=== PATIENT | female | born 1990 | race Caucasian/White ===

== ENCOUNTER 2017-02-04 22:15 | Emergency (ER) | payer OTHER ==
[~2017-02-04] VITALS: Ht 162.6 cm; Wt 79.5 kg
[~2017-02-04 22:15] MED LIST: PRENAT PO
[2017-02-04 22:18] VITALS: Ht 162.6 cm; Wt 79.5 kg
[2017-02-04] MEDS ORDERED: ONDANSETRON 4 MG INJ IV STA (22:27)
[2017-02-04] MEDS ORDERED: ONDANSETRON 4 MG INJ ONE (22:29)
[2017-02-04] MEDS ORDERED: SOD CHLORIDE 0.9% 1,000 ML IV ONE (22:30)
[2017-02-04] MEDS ORDERED: ACETAMINOPHEN 325 MG TAB PO ONE (23:00)
[2017-02-04] MEDS ORDERED: LIDOCAINE/MYLANTA 40 ML BTL PO ONE (23:00)
--- NOTE | 2017-02-05 00:29 | ERD ---
ER Documentation Chief Complaint Date/Time DATE: 02/05/17 TIME: 00:28 Chief Complaint MID ADBOMINAL PAIN RADIAITING TO THE BACK, NAUSEA/VOMITING. HPI 27-year-old female comes in with midepigastric abdominal pain and anxiety and tremulousness. She unfortunately just lost her 8-month-old child in a pediatric cardiac arrest. Denies suicidal homicidal ideation. Denies any other current issues. ROS All systems reviewed and are negative except as per history of present illness. Medications Home Meds Discontinued Reported Medications Multivit/Min/Fol Ac/Iron/Pren* ( S*) 1 Tab Tab, 1 TAB PO DAILY, TAB 03/15/16 Allergies Allergies: Coded Allergies: No Known Allergy (Unverified , 02/04/17) PMhx/Soc History of Surgery: No Anesthesia Reaction: No Hx Neurological Disorder: No Hx Respiratory Disorders: No Hx Cardiac Disorders: No Hx Psychiatric Problems: No Hx Miscellaneous Medical Probl: No Hx Alcohol Use: No Hx Substance Use: No Hx Tobacco Use: No Smoking Status: Never smoker Physical Exam Vitals Vital Signs Date Time Temp Pulse Resp B/P Pulse Ox O2 Delivery O2 Flow Rate FiO2 02/04/17 22:20 88 18 134/114 100 Room Air 02/04/17 22:18 98.1 87 18 165/87 100 Physical Exam Const: [] Head: Atraumatic Eyes: Normal Conjunctiva ENT: Normal External Ears, Nose and Mouth. Neck: Full range of motion..~ No meningismus. Resp: Clear to auscultation bilaterally Cardio: Regular rate and rhythm, no murmurs Abd: Soft, non tender, non distended. Normal bowel sounds Skin: No petechiae or rashes Back: No midline or flank tenderness Ext: No cyanosis, or edema Neur: Awake and alert Psych: Normal Mood and Affect Results 24 hrs Current Medications Medications (Trade) Dose Ordered Sig/Liane Route PRN Reason Start Time Stop Time Status Last Admin Dose Admin Sodium Chloride (NS) 1,000 ml @ 1,000 mls/hr Q1H ONCE IV 02/04/17 22:30 02/04/17 23:30 DC 02/04/17 23:01 Ondansetron HCl (Zofran Inj) 4 mg ONCE STAT IV 02/04/17 22:27 02/04/17 22:28 DC 02/04/17 23:01 Miscellaneous Medication (Gi Cocktail (2)) 40 ml ONCE ONCE PO 02/04/17 23:00 02/04/17 23:12 DC 02/04/17 23:00 Acetaminophen (Tylenol Tab) 650 mg ONCE ONCE PO 02/04/17 23:00 02/04/17 23:12 DC 02/04/17 23:01 Acetaminophen/ Hydrocodone Bitart ([place] (5/325)) 1 tab ONCE ONCE PO 02/05/17 00:30 02/05/17 00:31 02/05/17 00:14 Procedures/MDM Medical decision-making: Patient has epigastric abdominal pain and tremulousness consistent with gastritis likely secondary to anxiety. At this point she is stable for outpatient management. She has been advised to follow- up in 8 hours for serial abdominal exams. This is likely grief reaction. Patient offered counseling services here in the department. [employer] at bedside Departure Diagnosis: Primary Impression: Grief reaction Additional Impression: Abdominal pain Abdominal location: epigastric Qualified Code: R10.13 - Epigastric pain Condition: Stable Patient Instructions: Grief Reaction [facility] Feb 05, 2017 00:29
[2017-02-05] MEDS ORDERED: HYDROCODONE/APAP (5/325) TAB PO ONE (00:30)
[2017-02-05 02:46] VITALS: BP 155/82; PULSE 74; RESP 14
== END 2017-02-05 02:47 | disposition home or self-care (01) ==
LOC: E/R 22:15
DX: F43.20 Adjustment disorder, unspecified (principal); R11.2 Nausea with vomiting, unspecified
CPT/HCPCS: 93005; 96374; J2405; J7030; Z7502; Z7610

== ENCOUNTER 2017-02-15 04:03 | Emergency (ER) | payer OTHER ==
[~2017-02-15] VITALS: Ht 165.1 cm; Wt 88.0 kg
[2017-02-15 04:11] VITALS: Ht 165.1 cm; Wt 88.0 kg
--- NOTE | 2017-02-15 04:21 | ERA ---
ER Documentation Chief Complaint Date/Time DATE: 02/15/17 TIME: 04:20 Chief Complaint Epigastric abdominal pain HPI The patient is a 27-year-old female, presenting to the ER because of epigastric abdominal pain that began last night. She vomited once last night. She was in the ER a week ago for similar symptoms, denies fever, chills, neck pain, chest pain, dyspnea, lower abdominal pain, dysuria, diarrhea, constipation. He does not smoke nor drink. She recently lost her daughter a week ago from cardiac arrest Past medical history: None Past medical history: 3 ROS All systems reviewed and are negative except as per history of present illness. Medications Home Meds Active Scripts Ibuprofen* (Motrin*) 600 Mg Tab, 600 MG PO Q6H Y for PAIN AND OR ELEVATED TEMP, #20 TAB Prov:YAEL FULLER MD 02/15/17 Pantoprazole* (Protonix*) 40 Mg Tablet.dr, 40 MG PO DAILY, #20 TAB Prov:YAEL FULLER MD 02/15/17 Reported Medications Acetaminophen* (Acetaminophen*) 500 MG Extra Strength Tablet, 500 MG PO Q4H Y for PAIN AND OR ELEVATED TEMP, TAB 02/15/17 Allergies Allergies: Coded Allergies: No Known Allergy (Unverified , 02/04/17) PMhx/Soc History of Surgery: No Anesthesia Reaction: No Hx Neurological Disorder: No Hx Respiratory Disorders: No Hx Cardiac Disorders: No Hx Psychiatric Problems: No Hx Miscellaneous Medical Probl: No Hx Alcohol Use: No Hx Substance Use: No Hx Tobacco Use: No Physical Exam Vitals Vital Signs Date Time Temp Pulse Resp B/P Pulse Ox O2 Delivery O2 Flow Rate FiO2 02/15/17 04:44 75 18 152/97 98 02/15/17 04:11 98.7 70 18 198/99 98 Physical Exam Const: No acute distress. Head: Atraumatic. Eyes: Normal Conjunctiva. ENT: Normal External Ears, Nose and Mouth. Neck: Full range of motion. No meningismus. Resp: Clear to auscultation bilaterally. Cardio: Regular rate and rhythm. Abd: Soft, non distended, normal bowel sounds, mild epigastric abdominal tenderness, Skin: No petechiae or rashes. Back: No midline or flank tenderness. Ext: No cyanosis, or edema. Neur: Awake and alert. No focal deficit Psych: Normal Mood and Affect. Result Diagram: 02/15/17 04302/15/17 043 Results 24 hrs Laboratory Tests Test 02/15/17 04:30 White Blood Count 13.610^3/ul Red Blood Count 5.1610^6/ul Hemoglobin 12.5g/dl Hematocrit 39.1% Mean Corpuscular Volume 75.8fl Mean Corpuscular Hemoglobin 24.2pg Mean Corpuscular Hemoglobin Concent 32.0g/dl Red Cell Distribution Width 16.9% Platelet Count 42454^3/UL Mean Platelet Volume 10.3fl Neutrophils % 74.9% Lymphocytes % 17.4% Monocytes % 5.9% Eosinophils % 1.1% Basophils % 0.3% Nucleated Red Blood Cells % 0.0/100WBC Neutrophils # 10.210^3/ul Lymphocytes # 2.410^3/ul Monocytes # 0.810^3/ul Eosinophils # 0.210^3/ul Basophils # 0.010^3/ul Nucleated Red Blood Cells # 0.010^3/ul Sodium Level 144mmol/L Potassium Level 3.6mmol/L Chloride Level 102mmol/L Carbon Dioxide Level 24mmol/L Anion Gap 22 Blood Urea Nitrogen 13mg/dl Creatinine 0.77mg/dl Glucose Level 109mg/dl Calcium Level 9.5mg/dl Total Bilirubin 0.0mg/dl Direct Bilirubin 0.00mg/dl Indirect Bilirubin 0.0mg/dl Aspartate Amino Transf (AST/SGOT) 33IU/L Alanine Aminotransferase (ALT/SGPT) 46IU/L Alkaline Phosphatase 120IU/L Total Protein 7.4g/dl Albumin 4.7g/dl Globulin 2.70g/dl Albumin/Globulin Ratio 1.74 Lipase 63U/L Current Medications Medications (Trade) Dose Ordered Sig/Liane Route PRN Reason Start Time Stop Time Status Last Admin Dose Admin Morphine Sulfate (morphine) 4 mg ONCE STAT IV 02/15/17 04:25 02/15/17 04:26 DC 02/15/17 04:38 Ondansetron HCl (Zofran Inj) 4 mg ONCE STAT IV 02/15/17 04:25 02/15/17 04:26 DC 02/15/17 04:53 Miscellaneous Medication (Gi Cocktail (2)) 40 ml ONCE ONCE PO 02/15/17 05:30 02/15/17 05:31 DC Procedures/MDM Verbal report for the gallbladder ultrasound was negative for any gallstones MEDICAL MAKING DECISION: The patient is a 26-year-old female, presenting with acute epigastric abdominal pain. she was treated with morphine 4 mg IV for pain , Zofran 4 mg IV for nausea and a GI cocktail with good response The differential diagnoses considered include but are not limited to anxiety attack, panic attack cholelithiasis, cholecystitis, cystitis, pancreatitis, hepatitis, gastritis, peptic ulcer disease, gastric ulcer, appendicitis, diverticulitis, cholangitis, choledocholithiasis, partial small bowel obstruction. Departure Diagnosis: Primary Impression: Abdominal pain Additional Impression: Acute anxiety Comments She will be discharged with Protonix and Motrin I discussed the findings with the patient. I advised the patient to follow-up with the primary physician in about 1-2 days, sooner if needed and return if any concern. The patient's blood pressure was elevated (>120/80) but appears stable without evidence of hypertension emergency or urgency. The patient was counseled about the risks of hypertension and urged to pursue outpatient monitoring and therapy within a week with their primary care physician. YAEL FULLER MD Feb 15, 2017 04:21
[2017-02-15] MEDS ORDERED: ONDANSETRON 4 MG INJ IV STA (04:25)
[2017-02-15] MEDS ORDERED: morphine 4 MG/ML VIAL IV STA (04:25)
[2017-02-15 04:44] LABS: ADD SCAN DIFF NO
[2017-02-15] MEDS ORDERED: ACET-141 PO (04:44)
[2017-02-15 04:45] LABS: EOSINOPHILS # 0.2 10^3/ul (0.0-0.5); EOSINOPHILS % 1.1 % (0.0-7.0); MEAN CORPUSCULAR VOLUME 75.8 fl (82.0-101.0); NEUTROPHILS % 74.9 % (39.0-77.0)
[2017-02-15 04:52] LABS: BASOPHILS % 0.3 % (0.0-2.0); HEMATOCRIT 39.1 % (37.0-47.0); HEMOGLOBIN 12.5 g/dl (12.0-16.0); LYMPHOCYTES # 2.4 10^3/ul (0.8-2.9); LYMPHOCYTES % 17.4 % (15.0-51.0); MEAN CORPUSCULAR HEMOGLOBIN 24.2 pg (29.0-33.0); MEAN PLATELET VOLUME 10.3 fl (7.4-10.4); MONOCYTE # 0.8 10^3/ul (0.3-0.9); MONOCYTES % 5.9 % (0.0-11.0); NEUTROPHIL # 10.2 10^3/ul (1.6-7.5); PLATELET COUNT 328 10^3/UL (140-415); RED BLOOD COUNT 5.16 10^6/ul (4.20-5.40); RED CELL DISTRIBUTION WIDTH 16.9 % (11.5-14.5); WHITE BLOOD COUNT 13.6 10^3/ul (4.8-10.8)
[2017-02-15 05:02] LABS: ALBUMIN 4.7 g/dl (3.3-4.9); ALBUMIN/GLOBULIN RATIO 1.74; CALCIUM 9.5 mg/dl (8.4-10.2); CREATININE 0.77 mg/dl (0.44-1.00); POTASSIUM 3.6 mmol/L (3.5-5.1); TOTAL PROTEIN 7.4 g/dl (6.1-8.1)
[2017-02-15] MEDS ORDERED: LIDOCAINE/MYLANTA 40 ML BTL PO ONE (05:30)
[2017-02-15] MEDS ORDERED: PANT40TA3 PO (05:32)
[2017-02-15] MEDS ORDERED: IBUP-1542 PO (05:33)
[2017-02-15 05:40] LABS: URINE BLOOD (Dip) POC 2+ (NEGATIVE)
[2017-02-15 05:48] VITALS: BP 145/92; PULSE 75; RESP 18
--- NOTE | 2017-02-15 07:08 | RADRPT ---
PROCEDURE: ULTRASOUND LIMITED ABDOMEN CLINICAL INDICATION: 27-year-old female with abdominal pain. TECHNIQUE: Multiple sonographic of the right upper quadrant of the abdomen were obtained. The imag es were reviewed on a PACS workstation. COMPARISON: None. FINDINGS: The pancreas is partially visualized and is otherwise without abnormal echogenicity. The liver displays diffuse increased echogenicity consistent with fatty infiltration. The liver mariann ures 20.6 cm in length. No evidence of intrahepatic biliary ductal dilatation is seen. The portal a nd hepatic veins are unremarkable. The gallbladder demonstrates no wall thickening, sludge, nor stones. No pericholecystic fluid is see n. The common bile duct measures 3.3 mm and is not dilated. The right kidney displays normal echogenicity. The right kidney measures 19.3 cm in maximal length. No caliectasis or hydronephrosis is seen. No free fluid is seen. IMPRESSION: Hepatomegaly with diffuse fatty infiltration. .Eric Ferreira MD, MD Date Time Electronically viewed and signed by .Eric Ferreira MD, on 02/15/2017 07:07 .Kashif/
== END 2017-02-15 05:58 | disposition home or self-care (01) ==
LOC: E/R 04:03
DX: R10.13 Epigastric pain (principal); F41.9 Anxiety disorder, unspecified
CPT/HCPCS: 36415; 76705; 80053; 81003; 83690; 85025; 96374; 96375; J2270; J2405; Z7502; Z7610